=== PATIENT | male | born 1930 | race African-American/Black ===

== ENCOUNTER 2016-06-14 11:06 | Inpatient (IN) | payer MEDICARE, BC ==
[~2016-06-14] VITALS: Ht 180.3 cm; Wt 66.6 kg
[~2016-06-14 11:06] MED LIST: FERROUS SULFAT325 MG PO; FLOMAX0.4 MG PO; FLORAJEN3 CAPS460 MG PO; HYDROCODON-ACE1 EAC7 PO; LEVAQUIN500 MG PO; MIRALAX17 GM PO; MULTIPLE VITAMI1 TA1 PO; PRAVACHOL20 MG PO; PROTONIX40 MG PO; TOPROL XL25 MG PO; TRAZODONE HCL50 MG PO; TYLENOL PM1 TAB PO; ZESTORETIC 20-1 EACH PO
[2016-06-14 12:12] LABS: BASOPHILS 0.1 % (0.0-2.0); EOSINOPHILS 0.1 % (0-7); HEMATOCRIT 35.5 % (42.0-54.0); HEMOGLOBIN 11.8 g/dL (13.5-17.5); IMMATURE GRANULOCYTES 2.2 % (0-5); LYMPHOCYTES 21.6 % (15-50); MCHC 33.2 g/dL (31.0-37.0); MCV 90.3 fL (80.0-100.0); MEAN PLATELET VOLUME 10.2 fL (7.4-10.4); RBC 3.93 10x6/uL (4.20-6.10); RDW 16.2 % (11.5-14.5)
[2016-06-14 12:28] LABS: PLATELET COUNT 149 10x3/uL (130-400)
[2016-06-14 12:48] LABS: ALBUMIN 3.5 g/dL (3.4-5.0); ALKALINE PHOSPHATASE 144 U/L (46-116); ALT (SGPT) 30 U/L (10-68); BILIRUBIN - TOTAL 0.57 mg/dL (0.2-1.3); CALC OSMOLALITY 308 mosm/kg (275-300); CALCIUM 9.2 mg/dL (8.5-10.1); CARBON DIOXIDE 22.5 mmol/L (21.0-32.0); CHLORIDE - SERUM 111 mmol/L (98-107); GLUCOSE 128 mg/dL (74-106); POTASSIUM - SERUM 4.7 mmol/L (3.5-5.1); PROTEIN - SERUM 7.1 g/dL (6.4-8.2); SODIUM 149 mmol/L (136-145); UREA NITROGEN 42 mg/dL (7-18); eGFR NON AFRICAN AMERICAN 34 mL/min (90-120)
[2016-06-14 13:07] LABS: AMYLASE - SERUM 84 U/L (25-115); CREATINE KINASE 359 UL (21-232); LIPASE 90 U/L (73-393)
[2016-06-14 13:08] LABS: PRO BNP 50539 pg/mL (0-450)
[2016-06-14 13:10] LABS: CKMB 1.9 U/L (0.0-3.6); TROPONIN-I 0.087 ng/mL (0.000-0.060)
--- NOTE | 2016-06-14 16:13 | NUR ---
Patient Name: ZAFAR PICKETT Admission Status: ER Accout number: [id number] Admission Date: 06-14-2016 : 1930 Admission Diagnosis:Dyspnea Attending: SIMEON Current LOS: 1 Anticipated DC Date: Planned Disposition: Home with . Denied dc needs at this time. Primary Insurance: MEDICARE A & B Discharge Planning Comments: CM met with patient and to discuss dc plans/needs. Consent given to speak to patient to discuss discharge. Patient reports he lives at home with his . He is currently receiving chemotherapy. Dr. Lopez is his oncologist. Dr. Solis is his Dock Clerk and Dr. Schmidt is his PCP. He has been independent in his care at home. He denied use of assistive devices for ambulatory aide. He and feel he will be able to return home at discharge. At this time they don't feel he will require home health or other community resources. CM informed patient that we would be here to assist during his hospital stay. CM will continue to follow and assist as needed with dc plan/needs. Manager Plumbing: Laurie Ojeda RN, CCM Is the patient Alert and Oriented? Yes * How many steps to enter\exit or inside your home? 2 * PCP Dr. Schmidt * Pharmacy [facility] * Preadmission Environment Home Alone * ADLs Independent * Equipment None * List name and contact numbers for known caregivers / representatives who currently or will assist patient after discharge: Adelita Pickett - Spouse - [phone] * Community resources currently utilized None * Additional services required to return to the preadmission environment? No * Can the patient safely return to the preadmission environment? Yes * Has this patient been hospitalized within the prior 30 days at any hospital? No
--- NOTE | 2016-06-14 17:00 | NUR ---
RECEIVED PT FROM ER VIA LORE RESP SHALLOW VSS GENERALIZED WEAKNESS NOTED AT BEDSIDE
[2016-06-14] MEDS ORDERED: FLOMAX0.4 MG PO (17:41)
[2016-06-14] MEDS ORDERED: GLYCOLAX527 GM PO (17:47)
[2016-06-14] MEDS ORDERED: EMLA CREAM 30 G30 G1 TOPICAL (17:47)
[2016-06-14] MEDS ORDERED: IMODIUM2 MG PO (17:49)
[2016-06-14] MEDS ORDERED: ZOFRAN4 MG PO (17:50)
[2016-06-14] MEDS ORDERED: PHENERGAN25 M1 PO (17:50)
[2016-06-14 19:39] VITALS: BP 112/73; BMI 12.5
[2016-06-14 21:47] VITALS: BP 114/77
[2016-06-15 02:11] VITALS: BP 100/72
--- NOTE | 2016-06-15 04:46 | NUR ---
PT LAYING IN BED IN ROOM AT BEDSIDE CALL LIGHT IN REACH SRX2 BED LOW AND LOCKED NO DISTRESS OBSERVED WILL CONTINUE TO TR
[2016-06-15 05:29] VITALS: BP 187/84
[2016-06-15 06:00] LABS: BASOPHILS 0.1 % (0.0-2.0); EOSINOPHILS 0 % (0-7); HEMATOCRIT 35.5 % (42.0-54.0); HEMOGLOBIN 11.6 g/dL (13.5-17.5); IMMATURE GRANULOCYTES 1.4 % (0-5); LYMPHOCYTES 18.8 % (15-50); MCH 29.8 pg (26.0-34.0); MCHC 32.7 g/dL (31.0-37.0); MCV 91.3 fL (80.0-100.0); MEAN PLATELET VOLUME 10.1 fL (7.4-10.4); MONOCYTES 21.1 % (2-11); NEUTROPHILS 58.6 % (40-80); PLATELET COUNT 125 10x3/uL (130-400); RBC 3.89 10x6/uL (4.20-6.10); RDW 16.6 % (11.5-14.5); WBC 7.4 10x3/uL (4.8-10.8)
[2016-06-15 06:36] LABS: ALBUMIN 3.5 g/dL (3.4-5.0); ANION GAP 20.7 mmol/L (8-16); BILIRUBIN - TOTAL 0.45 mg/dL (0.2-1.3); CALCIUM 8.9 mg/dL (8.5-10.1); CARBON DIOXIDE 21.6 mmol/L (21.0-32.0); CREATININE - SERUM 2.1 mg/dL (0.6-1.3); POTASSIUM - SERUM 4.3 mmol/L (3.5-5.1); PROTEIN - SERUM 6.7 g/dL (6.4-8.2)
[2016-06-15 07:27] VITALS: BP 120/64
--- NOTE | 2016-06-15 07:42 | NUR ---
ASSESSMENT COMPLETE PT RESTING QUIETLY PLEASANTLY CONFUSED ORIENTED TO SELF AND PLACE DENIES ANY NEEDS OR DISCOMFORT NAD NOTED
--- NOTE | 2016-06-15 08:16 | NUR ---
SCDS ARE ON AND PATENT
[2016-06-15 11:36] VITALS: BP 99/64
--- NOTE | 2016-06-15 13:48 | NUR ---
WOUND CARE CONSULT: PT HAS NO SKIN ISSUES AT THIS TIME. HE DOES HAVE WEAKNESS AND IS A FALL RISK. HE AMBULATES WITH ASSISTANCE. RODNEY 18. WILL MONITOR NEEDED.
[2016-06-15 14:12] VITALS: Ht 180.3 cm; Wt 66.6 kg
[2016-06-15 15:44] VITALS: BP 103/57
[2016-06-15 19:46] VITALS: BP 92/60
--- NOTE | 2016-06-15 23:52 | NUR ---
PT LAYING IN BED AT BED SIDE DOBUTAMINE INFUSING TO PORT IN RIGHT SUBCLAVIAN AT 3.[address] RESPERATIONS EVEN AND UNLABORED ON ROOM AIR CALL LIGHT IN REACH SRX2 BED LOW AND LOCKED WILL MONITOR
[2016-06-16 00:14] VITALS: BP 100/61
[2016-06-16 05:07] VITALS: BP 90/61
[2016-06-16 06:07] LABS: BASOPHILS 0.2 % (0.0-2.0); EOSINOPHILS 0 % (0-7); HEMATOCRIT 36.1 % (42.0-54.0); HEMOGLOBIN 11.8 g/dL (13.5-17.5); IMMATURE GRANULOCYTES 1.7 % (0-5); LYMPHOCYTES 26.3 % (15-50); MCH 30.1 pg (26.0-34.0); MCHC 32.7 g/dL (31.0-37.0); MCV 92.1 fL (80.0-100.0); MEAN PLATELET VOLUME 10.2 fL (7.4-10.4); MONOCYTES 12.3 % (2-11); NEUTROPHILS 59.5 % (40-80); PLATELET COUNT 119 10x3/uL (130-400); RBC 3.92 10x6/uL (4.20-6.10); RDW 16.6 % (11.5-14.5); WBC 6.5 10x3/uL (4.8-10.8)
[2016-06-16 07:04] LABS: ANION GAP 14.6 mmol/L (8-16); CALCIUM 9.2 mg/dL (8.5-10.1); CARBON DIOXIDE 25.5 mmol/L (21.0-32.0); CREATININE - SERUM 1.9 mg/dL (0.6-1.3); POTASSIUM - SERUM 4.1 mmol/L (3.5-5.1)
[2016-06-16 07:37] VITALS: BP 92/70
--- NOTE | 2016-06-16 08:54 | NUR ---
URNE SPECIMEN COLLECTED AND TACKEN TO LAB FOR UA C&S. WILL MONITOR.
[2016-06-16 09:13] LABS: APPEARANCE CLEAR (CLEAR); BILIRUBIN NEGATIVE (NEGATIVE); COLOR YELLOW (YELLOW); GLUCOSE NEGATIVE (NEGATIVE); KETONE NEGATIVE (NEGATIVE); LEUKOCYTE ESTERASE NEGATIVE (NEGATIVE); NITRITE NEGATIVE (NEGATIVE); PROTEIN NEGATIVE (NEGATIVE); SPECIFIC GRAVITY 1.015 (1.005-1.020); UROBILINOGEN NORMAL (NORMAL)
--- NOTE | 2016-06-16 09:14 | NUR ---
[facility]. HR 109. IV PATENT. AT BS. WILL CONT. PLAN OF CARE.
[2016-06-16 11:27] VITALS: BP 87/59
[2016-06-16 15:27] VITALS: BP 93/62
[2016-06-16 21:18] VITALS: BP 109/54
--- NOTE | 2016-06-16 23:40 | NUR ---
PT LAYING IN BED NO DISTRESS OBSERVED CALL LIGHT IN REACH SRX2 BED LOW AND LOCKED CALL LIGHT IN REACH SRX2 NO DISTRESS OBSERVED AT THIS TIME WILL MONITOR
[2016-06-17 01:32] VITALS: BP 113/74
[2016-06-17 04:57] VITALS: BP 117/78
[2016-06-17 06:06] LABS: BASOPHILS 0 % (0.0-2.0); EOSINOPHILS 0 % (0-7); HEMATOCRIT 37.9 % (42.0-54.0); IMMATURE GRANULOCYTES 1.2 % (0-5); LYMPHOCYTES 15.8 % (15-50); MCH 29.6 pg (26.0-34.0); MCHC 31.7 g/dL (31.0-37.0); MCV 93.6 fL (80.0-100.0); MEAN PLATELET VOLUME 9.9 fL (7.4-10.4); MONOCYTES 9.6 % (2-11); NEUTROPHILS 73.4 % (40-80); PLATELET COUNT 126 10x3/uL (130-400); RBC 4.05 10x6/uL (4.20-6.10); RDW 16.7 % (11.5-14.5); WBC 7.3 10x3/uL (4.8-10.8)
[2016-06-17 06:21] LABS: ANION GAP 12.5 mmol/L (8-16); CALCIUM 9.1 mg/dL (8.5-10.1); CARBON DIOXIDE 26.8 mmol/L (21.0-32.0); CREATININE - SERUM 1.8 mg/dL (0.6-1.3); POTASSIUM - SERUM 4.3 mmol/L (3.5-5.1)
[2016-06-17 08:38] VITALS: BP 106/70
[2016-06-17 12:25] VITALS: BP 96/68
--- NOTE | 2016-06-17 13:06 | NUR ---
C/O SOB. REPOSITIONED IN BED. 02 SAT 98% ON 02 2L NC. WILL CONT. TO MONITOR.
[2016-06-17 16:28] VITALS: BP 95/76
--- NOTE | 2016-06-17 19:40 | NUR ---
RESUMED CARE OF PT, LYING IN BED RESPIRAITONS EVEN AND UNLABORED ON ROOM AIR. AT BEDSIDE, PLAN OF CARE DISCUSSED. 114 ST ON TELEMETRY. RIGHT INFUSAPORT RUNNING DOBUTUAMINE @ 5.7 (3MCG/KG/MIN). NO NEEDS VOICED AT THIS TIME. CALL LIGHT IN REACH. WILL CONTINUE TO MONITOR. SEE NURSE ASSESSMENT.
[2016-06-17 20:50] VITALS: BP 109/69
[2016-06-18 02:50] VITALS: BP 100/70
--- NOTE | 2016-06-18 05:01 | NUR ---
CALL LIGHT IN REACH, WILL CONTINUE WITH PLAN OF CARE.
[2016-06-18 05:22] VITALS: BP 110/72
[2016-06-18 05:48] LABS: BASOPHILS 0.1 % (0.0-2.0); EOSINOPHILS 0 % (0-7); HEMATOCRIT 40.6 % (42.0-54.0); HEMOGLOBIN 13.1 g/dL (13.5-17.5); LYMPHOCYTES 12.4 % (15-50); MCH 30.8 pg (26.0-34.0); MCHC 32.3 g/dL (31.0-37.0); MCV 95.3 fL (80.0-100.0); MONOCYTES 7.4 % (2-11); NEUTROPHILS 79.1 % (40-80); PLATELET COUNT 136 10x3/uL (130-400); RBC 4.26 10x6/uL (4.20-6.10); RDW 17.6 % (11.5-14.5); WBC 7.3 10x3/uL (4.8-10.8)
[2016-06-18 06:08] LABS: CALCIUM 9.5 mg/dL (8.5-10.1); CARBON DIOXIDE 23.6 mmol/L (21.0-32.0); CREATININE - SERUM 1.9 mg/dL (0.6-1.3); POTASSIUM - SERUM 4.6 mmol/L (3.5-5.1)
[2016-06-18 08:00] VITALS: BP 108/79
--- NOTE | 2016-06-18 09:06 | NUR ---
TELEMETRY ST. HR 111. RESP UL ON 02 2L MN. AT BS. CALL LIGHT IN REACH. WILL CONT. PLAN OF CARE.
--- NOTE | 2016-06-18 11:11 | EC ---
PATIENT:ZAFAR RINCON DATE OF SERVICE: 06/14/16 SEX: M MEDICAL RECORD: [id number] DATE OF : [birth year] LOCATION:D.M2 D.211 AGE OF PATIENT: 85 ADMISSION DATE: 06/14/16 REFERRING PHYSICIAN: INTERPRETING PHYSICIAN: CHRISTINA MENDEZ MD ECHOCARDIOGRAM REPORT ECHO CHARGES 4 ECHO COMPLETE CLINICAL DIAGNOSIS: ELEVATED TROPONIN/DYSPNEA ECHOCARDIOGRAPHIC MEASUREMENTS (adult normal given) AC root (d.<3.7cm) 3.3 LV Septum d (<1.2 cm> 1.3 Valve Excursion 2.0 LV Septum (systole) 1.5 Left Atria (s.<4.0cm> 4.0 LVPW d(<1.2cm) 1.3 RV (d.<2.3cm) 3.2 LVPW (sytole) 1.7 LV diastole(<5.6CM) 5.9 MV E-F(>70mm/sec) LV systole 4.8 LVOT Diameter 2.0 MV exc.(>10mm) Est.ejection fraction (50-75%) Pericardial Effusion N DOPPLER: LVIT A 46.0 E 100 LA RVSP 63.0 LVOT 55.0 AOP1/2T Asc. Ao 96.0 RVOT 63.0 RA PA 44.0 AV Gradient Peak 3.7 AV Mean 1.7 AV Area 1.5 MV Gradient Peak 4.7 MV Mean 1.5 MV Area COMMENTS: Arch Support Maker: Maryellen RUSSOOE Chip Tester:1 Dr. Mendez TAPE# PACS DATE OF SERVICE: 06/14/2016 Echocardiogram FINDINGS: 1. Left ventricular chamber size is dilated. Left ventricular systolic function is markedly reduced, overall ejection fraction in the 15% to 20% range. 2. Left atrium is upper limits of normal at 4.0 cm. Right atrium and right ventricular chamber sizes are moderately dilated. 3. Valvular structures have normal structure and motion. ECHOCARDIOGRAM REPORT [id number] ZAFAR RINCON 4. Doppler interrogation reveals moderate to severe mitral regurgitation, moderate to severe tricuspid regurgitation. No other valvular insufficiency or stenosis. Pulmonary systolic pressure is elevated estimated 63 mmHg. 5. No evidence of pericardial effusion or left ventricular thrombus. TRANSINT:[id number] Voice Confirmation ID: [id number] DOCUMENT ID: [id number] CHRISTINA MENDEZ MD at 1111 CC: [id number] DICTATION DATE: 06/15/16 1051 ACQUISITION MANAGER: 06/15/16 1128 ADM IN [facility] [address] [place] [address]
[2016-06-18 12:00] VITALS: BP 109/74
--- NOTE | 2016-06-18 14:11 | NUR ---
Nutrition Follow Up: Spoke with pt and spouse. Pt appeared very anxious at the time of RD visit. Spouse reported that pt had not been eating very much at all. She stated that she had been eating off his meal tray once he was finished with it. asked if this was wrong - RD requested that just let [facility] staff know ~how much pt had consumed. stated that she understood. Spouse reported that pt likes Ensure and has been drinking but prefers only vanilla flavor. RD will honor food preferences. Diet: Regular PO Intake: Poor per pt's +BM 06/15/16 Labs noted - BUN, Cr, Na, Glucose elevated Meds: Phenergan, Zofran Pt with poor po intake at this time. Rec continue current diet, supplement regimen. Pt may benefit from an appetite stimulant. RD following.
[2016-06-18 16:02] VITALS: BP 95/61
--- NOTE | 2016-06-18 17:26 | NUR ---
IV AND TELEMETRY DCD. DC PLANS GIVEN. UNDERSTANDING VOICED.
--- NOTE | 2016-06-18 17:42 | NUR ---
ESCORTED TO CAR BY W/C.
== END 2016-06-18 17:43 | disposition home or self-care (01) | DRG 291 ==
LOC: D.ER 11:06 → D.M2 14:59
PROVIDERS: Family Medicine; ADMIT Internal Medicine Hematology & Oncology
DX: I11.0 Hypertensive heart disease with heart failure (principal); J96.00 Acute respiratory failure, unspecified whether with hypoxia or hypercapnia; N17.9 Acute kidney failure, unspecified; I24.8 Other forms of acute ischemic heart disease; C18.9 Malignant neoplasm of colon, unspecified; C78.7 Secondary malignant neoplasm of liver and intrahepatic bile duct; I50.21 Acute systolic (congestive) heart failure; J44.9 Chronic obstructive pulmonary disease, unspecified